=== PATIENT | female | born 1985 | race Caucasian/White ===

== ENCOUNTER 2017-03-27 01:00 | Emergency (ER) | payer SELFPAY ==
--- NOTE | 2017-03-27 01:20 | EDM.PDOC ---
ED HPI GENERAL MEDICAL PROBLEM - General Chief Complaint: 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 Problem Stated Complaint: FEMALE PROBLEMS Time Seen by Provider: 03/27/17 01:04 - History of Present Illness INITIAL COMMENTS - FREE TEXT/NARRATIVE: HISTORY AND PHYSICAL: History of present illness: The patient is a healthy 31-year-old female who presents with 3 days of dysuria frequency and urgency with urination and also of external genitalia irritation and discomfort. The patient states she was treated for a yeast infection a month ago in [place] and says that the discomfort started simultaneous with the urine symptoms. She has no pelvic pain no abdominal pain no vomiting or diarrhea no fevers and no flank pain. She has no gross vaginal discharge and she has a implant for contraception. Patient states that she was checked for STDs one month ago and is not worried about that. Patient states that the external genitalia are causing her discomfort and she has tried multiple over- the-counter preparations including Vagisil Desitin Review of systems: As per history of present illness and below otherwise all systems reviewed and negative. Past medical history: As per history of present illness and as reviewed below otherwise noncontributory. Surgical history: As per history of present illness and as reviewed below otherwise noncontributory. Social history: No reported history of drug or alcohol abuse. Family history: As per history of present illness and as reviewed below otherwise noncontributory. Physical exam: Gen.: Well-developed mildly overweight female who is nontoxic and speaking clearly and easily in the ED and vital signs have been noted by me HEENT: Atraumatic, normocephalic, negative for conjunctival pallor or scleral icterus, mucous membranes moist, throat clear, neck supple, nontender, trachea midline. Lungs: Clear to auscultation, breath sounds equal bilaterally, chest nontender. Heart: S1S2, regular rate and rhythm no overt murmurs Abdomen: Soft, nondistended, nontender. NABS Negative for costovertebral tenderness. Pelvis: Stable nontender. 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: Labia majora and minora are within normal limits without any gross swelling erythema and there are no lesions seen in the region. Rectal: Deferred. Extremities: Atraumatic, negative for cords or calf pain. Neurovascular unremarkable. Neuro: Awake, alert, oriented. Cranial nerves II through XII unremarkable. Cerebellum unremarkable. Motor and sensory unremarkable throughout. Exam nonfocal. Diagnostics: UA urine culture UCG Therapeutics: [] Impression: Dysuria/early UTI Definitive disposition and diagnosis as appropriate pending reevaluation and review of above. vaginal area Pain Score (Numeric/FACES): 8 - Related Data Allergies Allergy/AdvReac Type Severity Reaction Status Date / Time aspirin Allergy Rash Verified 03/27/17 01:10 Penicillins Allergy Rash Verified 03/27/17 01:10 Home Meds: Home Meds . [No Known Home Meds] 03/27/17 [History] ED ROS GENERAL - Review of Systems Review Of Systems: ROS reveals no pertinent complaints other than HPI. ED EXAM, GENERAL - Physical Exam Exam: See Below (See dictation) Course - Vital Signs Last Recorded V/S: Last Vital Signs Temp 36.5 C 03/27/17 01:11 Pulse 86 03/27/17 01:11 Resp 17 03/27/17 01:11 BP 108/65 03/27/17 01:11 Pulse Ox 98 03/27/17 01:11 - Orders/Labs/Meds Orders: Active Orders 24 hr Category Date Time Status CULTURE URINE [RM] Stat Lab 03/27/17 01:23 Received Labs: Laboratory Tests 03/27/17 03/27/17 Range/Units 01:23 01:23 Urine Color YELLOW Urine Appearance CLEAR Urine pH 6.0 (5.0-8.0) Ur Specific [place] 1.025 (1.001-1.035) Urine Protein NEGATIVE (NEGATIVE) mg/dL Urine Glucose (UA) NEGATIVE (NEGATIVE) mg/dL Urine Ketones NEGATIVE (NEGATIVE) mg/dL Urine Occult Blood NEGATIVE (NEGATIVE) Urine Nitrite NEGATIVE (NEGATIVE) Urine Bilirubin NEGATIVE (NEGATIVE) Urine Urobilinogen 0.2 (<2.0) EU/dL Ur Leukocyte Esterase TRACE (NEGATIVE) Urine RBC 0-2 (0-2/HPF) Urine WBC 1-3 (0-5/HPF) Ur Epithelial Cells FEW (NONE-FEW) Urine Bacteria FEW (NEGATIVE) Urine Mucus LIGHT (NONE-MOD) Urine HCG, Qual NEGATIVE (NEGATIVE) Departure - Departure Time of Disposition: 01:59 Disposition: Home, Self-Care 01 Condition: Good Clinical Impression: UTI, Urinary tract infectious disease, Dysuria, Vaginal irritation - Discharge Information Referrals: PCP,None [Primary Care Provider] - Forms: ED Department Discharge Additional Instructions: The following information is given to patients seen in the emergency department who are being discharged to home. This information is to outline your options for follow-up care. We provide all patients seen in our emergency department with a follow-up referral. The need for follow-up, as well as the timing and circumstances, are variable depending upon the specifics of your emergency department visit. If you don't have a primary care physician on staff, we will provide you with a referral. We always advise you to contact your personal physician following an emergency department visit to inform them of the circumstance of the visit and for follow-up with them and/or the need for any referrals to a consulting specialist. The emergency department will also refer you to a specialist when appropriate. This referral assures that you have the opportunity for followup care with a specialist. All of these measure are taken in an effort to provide you with optimal care, which includes your followup. Under all circumstances we always encourage you to contact your private physician who remains a resource for coordinating your care. When calling for followup care, please make the office aware that this follow-up is from your recent emergency room visit. If for any reason you are refused follow-up, please contact the [facility] emergency department at and ask to speak to the emergency department charge nurse. [facility] Primary care- Internal Medicine and Family [place] [phone] Please push hydration and use medications as prescribed from [facility], ciprofloxacin and Pyridium, until they are finished. Please also fill the prescription given to you for Monistat cream to apply to the external areas for discomfort. Please call and follow-up in our clinic for reevaluation and further care and return to ER as needed and as discussed. - My Orders Last 24 Hours: My Active Orders 03/27/17 01:23 CULTURE URINE [RM] Stat - Assessment/Plan Last 24 Hours: My Active Orders 03/27/17 01:23 CULTURE URINE [RM] Stat
== END 2017-03-27 02:10 | disposition home or self-care (01) ==
LOC: MW.ED 01:00
DX: N39.0 Urinary tract infection, site not specified (principal); N89.8 Other specified noninflammatory disorders of vagina; Z88.6 Allergy status to analgesic agent; Z88.0 Allergy status to penicillin
CPT/HCPCS: 81001; 81025; 87086; 99283

== ENCOUNTER 2019-09-08 05:23 | Inpatient (IN) | payer MEDICAID ==
[2019-09-08] MEDS ORDERED: Sodium Chloride 0.9% 10 ML Syringe FLUSH PRN (05:27)
[2019-09-08] MEDS ORDERED: Citric Acid/Sodium Citrate Solution 30 ML Cup PO ONE (05:27)
[2019-09-08] MEDS ORDERED: Sodium Chloride 0.9% 2.5 ML Syringe FLUSH PRN (05:27)
[2019-09-08] MEDS ORDERED: Sodium Chloride 0.9% 10 ML SDV IV PRN (05:27)
[2019-09-08] MEDS ORDERED: Oxytocin/0.9 % Sodium Chloride 30 UNIT/500 ML BAG IV SCH (05:30)
[2019-09-08] MEDS ORDERED: Clindamycin Phosphate in D5W 600 MG in Premix Bag 1 BAG IV ONE ×2 (05:45)
[2019-09-08] MEDS: Lactated Ringers 1,000 ML IV SCH ×4 (05:55→19:35)
[2019-09-08] MEDS ORDERED: Ondansetron 4 MG/2 ML SDV ONE (07:27)
[2019-09-08] MEDS ORDERED: Propofol 200 MG/20 ML SDV ONE (07:27)
[2019-09-08] MEDS ORDERED: ePHEDrine 50 MG/ML SDV ONE (07:28)
[2019-09-08] MEDS ORDERED: Oxytocin 10 Units/1 ML SDV ONE (07:28)
--- NOTE | 2019-09-08 07:28 | PCM.PREANE ---
Preanesthetic Assessment - Anesthesia/Transfusion/Family Hx Anesthesia History: Prior Anesthesia Without Reaction (Epidural, Spinal, and GA without complications) Family History of Anesthesia Reaction: No Transfusion History: No Prior Transfusion(s) - Review of Systems General: No Symptoms Pulmonary: No Symptoms Cardiovascular: No Symptoms Gastrointestinal: No Symptoms Neurological: No Symptoms Other: Reports: None - Physical Assessment NPO Status Date: 09/07/19 NPO Status Time: 22:00 Height: 5 ft 3 in Weight: 101.605 kg ASA Class: 2 Mental Status: Alert & Oriented x3 Airway Class: Mallampati = 2 Dentition: Reports: Normal Dentition Thyro-Mental Finger Breadths: 3 Mouth Opening Finger Breadths: 3 ROM/Head Extension: Full Lungs: Clear to Auscultation, Normal Respiratory Effort Cardiovascular: Regular Rate, Regular Rhythm - Lab Values: Laboratory Last Values WBC 11.03 K/uL (4.0-11.0) H 09/08/19 05:54 RBC 4.36 M/uL (4.30-5.90) 09/08/19 05:54 Hgb 10.3 g/dL (12.0-16.0) L 09/08/19 05:54 Hct 32.8 % (36.0-46.0) L 09/08/19 05:54 MCV 75.2 fL (80.0-98.0) L 09/08/19 05:54 MCH 23.6 pg (27.0-32.0) L 09/08/19 05:54 MCHC 31.4 g/dL (31.0-37.0) 09/08/19 05:54 RDW Std Deviation 42.0 fl (28.0-62.0) 09/08/19 05:54 RDW Coeff of Xenia 15 % (11.0-15.0) 09/08/19 05:54 Plt Count 216 K/uL (150-400) 09/08/19 05:54 MPV 11.80 fL (7.40-12.00) 09/08/19 05:54 Nucleated RBC % 0.0 /100WBC 09/08/19 05:54 Nucleated RBCs # 0 K/uL 09/08/19 05:54 Blood Type A POSITIVE 09/08/19 05:54 Antibody Screen NEGATIVE 09/08/19 05:54 - Allergies Allergies/Adverse Reactions: Allergies Allergy/AdvReac Type Severity Reaction Status Date / Time aspirin Allergy Rash Verified 09/08/19 05:26 Latex, Natural Rubber Allergy Rash Verified 09/08/19 06:30 Penicillins Allergy Difficulty Verified 09/08/19 05:26 Breathing - Acknowledgements Anesthesia Type Planned: Spinal Pt an Appropriate Candidate for the Planned Anesthesia: Yes Alternatives and Risks of Anesthesia Discussed w Pt/Guardian: Yes Pt/Guardian Understands and Agrees with Anesthesia Plan: Yes PreAnesthesia Questionnaire - Past Health History Medical/Surgical History: Denies Medical/Surgical History HEENT History: Other HEENT History: dental implants Cardiovascular History: Reports: None Respiratory History: Reports: Asthma (Last inhaler use at least 6 months ago, exercise induced) Gastrointestinal History: Reports: None 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 History: Reports: Other (See Below) Other 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 History: hx UTI 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 Para: 2 LMP (Approximate): Musculoskeletal History: Reports: None Neurological History: Reports: None Psychiatric History: Reports: None Endocrine/Metabolic History: Reports: Obesity/BMI 30+ Hematologic History: Reports: Anemia Immunologic History: Reports: None Oncologic (Cancer) History: Reports: Bone Other Oncologic History: Right thigh bone cancer - pt states this was excised and states its resolved to her knowledge Dermatologic History: Reports: None - Infectious Disease History Infectious Disease History: Reports: None - Past Surgical History Head Surgeries/Procedures: Reports: None HEENT Surgical History: Reports: None Cardiovascular Surgical History: Reports: None Respiratory Surgical History: Reports: None GI Surgical History: Reports: None Female Surgical History: Reports: Section (x2) Endocrine Surgical History: Reports: None Neurological Surgical History: Reports: None Musculoskeletal Surgical History: Reports: Other (See Below) Other Musculoskeletal Surgeries/Procedures:: hx rt leg 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" as a teenager Oncologic Surgical History: Reports: None Dermatological Surgical History: Reports: None - SUBSTANCE USE Smoking Status *Q: Never Smoker Tobacco Use Within Last Twelve Months: No Second Hand Smoke Exposure: No Recreational Drug Use History: No - HOME MEDS Home Medications: Home Meds Pnv No.95/Ferrous Fum/Folic AC [ Vitamin Tablet] 1 tab PO DAILY [History] - CURRENT (IN HOUSE) MEDS Current Meds: Current Medications Lactated Ringer's (Ringers, Lactated) 1,000 mls @ 500 mls/hr IV BOLUS [facility] Last Admin: 09/08/19 05:55 Dose: 500 mls/hr Oxytocin/Sodium Chloride (Oxytocin 30 Unit/500 Ml-Ns) 30 unit in 500 mls @ 250 mls/hr IV TITRATE TIP Sodium Chloride (Saline Flush) 10 ml FLUSH ASDIRECTED PRN PRN Reason: Keep Vein Open Sodium Chloride (Saline Flush) 2.5 ml FLUSH ASDIRECTED PRN PRN Reason: Keep Vein Open Sodium Chloride (Normal Saline) 10 ml IV ASDIRECTED PRN PRN Reason: IV Use Discontinued Medications Citric Acid/Sodium Citrate (Bicitra Solution) 30 ml PO ONETIME ONE Stop: 09/08/19 05:28 Clindamycin Phosphate 600 mg/ (Premix) 50 mls @ 100 mls/hr IV ONETIME ONE Stop: 09/08/19 06:14
[2019-09-08] MEDS ORDERED: Sodium Chloride 0.9% 20 ML ONE (07:30)
[2019-09-08] MEDS ORDERED: Morphine PF 10 MG/10 ML SDV ONE (07:33)
[2019-09-08] MEDS ORDERED: Octyl 2-Cyanoacrylate 1 Tube ONE (07:40)
--- NOTE | 2019-09-08 08:01 | PCM.LDHP ---
L&D History of Present Illness - General Date of Service: 09/08/19 Admit Problem/Dx: Patient Status Order with Admit Dx/Problem 09/08/19 05:15 Patient Status [ADT] Routine Admission Diagnosis/Problem Admission Diagnosis/Problem 09/08/19 07:59 33 yo admitted at 38 4/7 weeks for repeat delivery by Dr. Whiting; A +, Rubella Immune, GBS positive Source of Information: Patient History Limitations: Reports: No Limitations - Related Data Allergies/Adverse Reactions: Allergies Allergy/AdvReac Type Severity Reaction Status Date / Time aspirin Allergy Rash Verified 09/08/19 05:26 Latex, Natural Rubber Allergy Rash Verified 09/08/19 06:30 Penicillins Allergy Difficulty Verified 09/08/19 05:26 Breathing Home Medications: Home Meds Pnv No.95/Ferrous Fum/Folic AC [ Vitamin Tablet] 1 tab PO DAILY [History] Past Medical History - Past Health History Medical/Surgical History: Denies Medical/Surgical History HEENT History: Other HEENT History: dental implants Cardiovascular History: Reports: None Respiratory History: Reports: Asthma (Last inhaler use at least 6 months ago, exercise induced) Gastrointestinal History: Reports: None 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 History: Reports: Other (See Below) Other 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 History: 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: Musculoskeletal History: Reports: None Neurological History: Reports: None Psychiatric History: Reports: None Endocrine/Metabolic History: Reports: Obesity/BMI 30+ Hematologic History: Reports: Anemia Immunologic History: Reports: None Oncologic (Cancer) History: Reports: Bone Other Oncologic History: Right thigh bone cancer - pt states this was excised and states its resolved to her knowledge Dermatologic History: Reports: None - Infectious Disease History Infectious Disease History: Reports: None - Past Surgical History Head Surgeries/Procedures: Reports: None HEENT Surgical History: Reports: None Cardiovascular Surgical History: Reports: None Respiratory Surgical History: Reports: None GI Surgical History: Reports: None Female Surgical History: Reports: Section (x2) Endocrine Surgical History: Reports: None Neurological Surgical History: Reports: None Musculoskeletal Surgical History: Reports: Other (See Below) Other Musculoskeletal Surgeries/Procedures:: hx rt leg 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" as a teenager Oncologic Surgical History: Reports: None Dermatological Surgical History: Reports: None Social & Family History - Family History Family Medical History: Noncontributory Endocrine/Metabolic: Reports: Diabetes, type II Oncologic: Reports: Breast - Tobacco Use Smoking Status *Q: Never Smoker Second Hand Smoke Exposure: No - Caffeine Use Caffeine Use: Reports: Coffee - Recreational Drug Use Recreational Drug Use: No Drug Use in Last 12 Months: No H&P Review of Systems - Review of Systems: Review Of Systems: See Below General: Reports: No Symptoms HEENT: Reports: No Symptoms Pulmonary: Reports: No Symptoms Cardiovascular: Reports: No Symptoms Gastrointestinal: Reports: No Symptoms 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: Reports: No Symptoms Musculoskeletal: Reports: No Symptoms Skin: Reports: No Symptoms Psychiatric: Reports: No Symptoms Neurological: Reports: No Symptoms Hematologic/Lymphatic: Reports: No Symptoms Immunologic: Reports: No Symptoms L&D Exam - Exam Exam: See Below - Vital Signs Weight: 224 lb - Exam General: Alert, Oriented, Cooperative Lungs: Normal Respiratory Effort Cardiovascular: Regular Rate, Regular Rhythm GI/Abdominal Exam: Soft, Non-Tender Rectal Exam: Deferred 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: Deferred Back Exam: Normal Inspection, Full Range of Motion Extremities: Normal Inspection, Normal Range of Motion, Non-Tender, Normal Capillary Refill Skin: Warm, Dry, Intact Neurological: Normal Speech, Normal Tone, Sensation Intact Psychiatric: Alert, Normal Affect, Normal Mood - Patient Data Lab Results Last 24 hrs: Laboratory Results - last 24 hr 09/08/19 09/08/19 Range/Units 05:54 05:54 WBC 11.03 H (4.0-11.0) K/uL RBC 4.36 (4.30-5.90) M/uL Hgb 10.3 L (12.0-16.0) g/dL Hct 32.8 L (36.0-46.0) % MCV 75.2 L (80.0-98.0) fL MCH 23.6 L (27.0-32.0) pg MCHC 31.4 (31.0-37.0) g/dL RDW Std Deviation 42.0 (28.0-62.0) fl RDW Coeff of Xenia 15 (11.0-15.0) % Plt Count 216 (150-400) K/uL MPV 11.80 (7.40-12.00) fL Nucleated RBC % 0.0 /100WBC Nucleated RBCs # 0 K/uL Blood Type A POSITIVE Antibody Screen NEGATIVE Result Diagrams: 09/08/19 05:54 - Problem List (1) Supervision of normal IUP (intrauterine ) in multigravida SNOMED Code(s): 915451422, [id number], 389076077 ICD Code: Z34.80 - ENCOUNTER FOR SUPRVSN OF NORMAL , UNSP TRIMESTER Status: Acute Priority: High Current Visit: Yes Qualifiers: Trimester: third trimester Qualified Code(s): Z34.83 - Encounter for supervision of other normal , third trimester Problem List Initiated/Reviewed/Updated: Yes Orders Last 24hrs: Active Orders 24 hr Category Date Time Status Patient Status [ADT] Routine ADT 09/08/19 05:15 Active Notify Provider Vital Signs [RC] PRN Care 09/08/19 05:31 Active Procedure Site Prep Instruct [RC] ASDIRECTED Care 09/08/19 05:27 Active Up ad Argenis [RC] ASDIRECTED Care 09/08/19 05:27 Active Verify Patient Consent Obtain [RC] ASDIRECTED Care 09/08/19 05:27 Active Vital Signs [RC] PER UNIT ROUTINE Care 09/08/19 05:27 Active RPR (SYPHILIS SERO) W/ RFLX [REF] Routine Lab 09/08/19 05:54 Received Lactated Ringers [Ringers, Lactated] 1,000 ml Med 09/08/19 05:30 Active IV BOLUS Oxytocin/0.9 % Sodium Chloride [Oxytocin 30 Unit/500 ML Med 09/08/19 05:30 Active -NS] 30 unit in 500 ml IV TITRATE Sodium Chloride 0.9% [Normal Saline] Med 09/08/19 05:27 Active 10 ml IV ASDIRECTED PRN Sodium Chloride 0.9% [Saline Flush] Med 09/08/19 05:27 Active 10 ml FLUSH ASDIRECTED PRN Sodium Chloride 0.9% [Saline Flush] Med 09/08/19 05:27 Active 2.5 ml FLUSH ASDIRECTED PRN Peripheral IV Insertion Adult [OM.PC] Routine Oth 09/08/19 05:27 Ordered Schedule Procedure [COMM] Per Unit Routine Oth 09/08/19 05:27 Ordered Resuscitation Status Routine Resus Stat 09/08/19 05:27 Ordered Medication Orders Lactated Ringer's (Ringers, Lactated) 1,000 mls @ 500 mls/hr IV BOLUS TIP Last Admin: 09/08/19 07:38 Dose: 500 mls/hr Infusion: 09/08/19 07:38 Dose: 500 mls/hr Admin: 09/08/19 05:55 Dose: 500 mls/hr Oxytocin/Sodium Chloride (Oxytocin 30 Unit/500 Ml-Ns) 30 unit in 500 mls @ 250 mls/hr IV TITRATE TIP Sodium Chloride (Saline Flush) 10 ml FLUSH ASDIRECTED PRN PRN Reason: Keep Vein Open Sodium Chloride (Saline Flush) 2.5 ml FLUSH ASDIRECTED PRN PRN Reason: Keep Vein Open Sodium Chloride (Normal Saline) 10 ml IV ASDIRECTED PRN PRN Reason: IV Use Assessment/Plan Comment:: A: 33 yo admitted at 38 4/7 weeks for repeat delivery by Dr. Whiting ; A+, Rubella Immune, GBS positive P: Repeat delivery; routine plan of care.
--- NOTE | 2019-09-08 09:05 | PCM.OPNOTE ---
- General Post-Op/Procedure Note Date of Surgery/Procedure: 09/08/19 Operative Procedure(s): Repeat C/section. Pre Op Diagnosis: Previous C/section.[id number]. Post-Op Diagnosis: Same Anesthesia Technique: Spinal Primary Surgeon: Oscar Whiting Block Saw Operator: Ainsley Bailey EBL in mLs: 600 Complications: None Condition: Good
[2019-09-08] MEDS ORDERED: Ketorolac 30 MG/ML SDV ONE (09:32)
[2019-09-08] MEDS: Ketorolac 30 MG/ML SDV IVPUSH SCH ×2 (09:35→19:23)
--- NOTE | 2019-09-08 09:39 | PCM.POSTAN ---
POST ANESTHESIA ASSESSMENT - MENTAL STATUS Mental Status: Alert - RESPIRATORY Respiratory Status: Respiratory Rate WNL - CARDIOVASCULAR CV Status: Pulse Rate WNL - GASTROINTESTINAL GI Status: No Symptoms - PAIN Pain Score: 0 (SAB regressing) - POST OP HYDRATION Hydration Status: Adequate & Stable - OBSERVATIONS Free Text/Narrative:: Doing well. VSS. No problems noted.
[2019-09-08] MEDS ORDERED: Nalbuphine 10 MG/1 ML Vial IVPUSH PRN (09:47)
[2019-09-08] MEDS ORDERED: diphenhydrAMINE 50 MG/ML SDV IVPUSH PRN ×2 (09:47→12:14)
[2019-09-08] MEDS ORDERED: Naloxone 0.4 MG/ML Syringe IVPUSH PRN (09:47)
[2019-09-08] MEDS ORDERED: Bisacodyl 10 MG Supp RECTAL PRN (12:14)
[2019-09-08] MEDS ORDERED: Ondansetron 4 MG/2 ML SDV IVPUSH PRN (12:14)
[2019-09-08] MEDS ORDERED: Tranexamic Acid 1,000 MG in Sodium Chloride 0.9% 100 ML IV PRN (12:14)
[2019-09-08] MEDS ORDERED: Methylergonovine 0.2 MG/1 ML Amp IM PRN (12:14)
[2019-09-08] MEDS ORDERED: Misoprostol 200 MCG Tab RECTAL PRN (12:14)
[2019-09-08] MEDS ORDERED: Acetaminophen/oxyCODONE 325-5 MG Tab PO PRN ×2 (12:14)
[2019-09-08] MEDS ORDERED: Oxytocin 10 Units/1 ML SDV IM PRN (12:14)
[2019-09-08] MEDS ORDERED: Lanolin 100% Cream 7 GM Tube TOP PRN (12:14)
[2019-09-08] MEDS ORDERED: Oxytocin/Lactated Ringers 30 UNIT/500 ML BAG IV SCH (12:15)
--- NOTE | 2019-09-08 14:50 | OR ---
SURGEON: Oscar Whiting MD DATE OF PROCEDURE: 09/08/2019 PREOPERATIVE DIAGNOSIS: Intrauterine , 39 weeks; previous section; admitted for elective repeat section. POSTOPERATIVE DIAGNOSIS: Intrauterine , 39 weeks; previous section; admitted for elective repeat section. OPERATION PERFORMED: Elective repeat low-transverse section. SURGICAL ELASTIC KNITTER: Ainsley Bailey, certified nurse aluminum siding applicator. ANESTHESIA: Spinal. ESTIMATED BLOOD LOSS: 650 mL. COMPLICATIONS: None. FINDING: Male fetus. score reported to be 8 and 9. Normal uterus, tubes, and ovaries. INDICATION FOR SURGERY: This patient had two previous sections. She is term. She is 39 weeks. She is admitted for elective repeat section. PROCEDURE IN DETAIL: The patient was brought to the OR and properly identified. After taking time- out, the patient was prepped and draped in sterile fashion as usual. A low- transverse Pfannenstiel skin incision through the old scar was done. The [place] fascia and rectus fascia were opened in the direction of the incision. The two recti muscles were and peritoneal cavity was entered. A low- transverse uterine incision was done and extended manually with the hand. Fetus was in the vertex position, delivered without any problem, and cried immediately. score later on reported to be 9 and 9, and the weight is not available. The placenta delivered spontaneous, complete, and intact. Repair of the lower uterine segment was done with 2-0 Vicryl continuous interlocking in 2 layers. Reperitonealization done with 3-0 Vicryl continuous and then the peritoneal cavity evacuated completely from all blood and blood clots, and closed with 3-0 Vicryl continuous. The rectus fascia was closed with #1 PDS continuous, [place]il[place] fascia with 3-0 Vicryl continuous, and skin closed with 3-0 on a Júnior needle in a subcuticular fashion and Dermabond. Instrument and sponge counts were correct. The patient tolerated the procedure well and went to recovery room in stable general condition. DANIELLE / JDAE /[id number]
[2019-09-08] MEDS: Docusate Sodium 100 MG Cap PO SCH (21:42)
[2019-09-09] MEDS ORDERED: Ketorolac 30 MG/ML SDV ONE ×2 (02:17→08:02)
[2019-09-09] MEDS: Ketorolac 30 MG/ML SDV IVPUSH SCH ×2 (02:22→08:10)
--- NOTE | 2019-09-09 13:29 | PCM.PNPP ---
- General Info Date of Service: 09/09/19 Functional Status: Reports: Pain Controlled - Review of Systems General: Reports: No Symptoms HEENT: Reports: No Symptoms Pulmonary: Reports: No Symptoms Cardiovascular: Reports: No Symptoms Gastrointestinal: Reports: No Symptoms 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: Reports: No Symptoms Musculoskeletal: Reports: No Symptoms Skin: Reports: No Symptoms Neurological: Reports: No Symptoms Psychiatric: Reports: No Symptoms - General Info Date of Service: 09/09/19 - Patient Data Vital Signs - Most Recent: Last Vital Signs Temp 37.2 C 09/09/19 04:00 Pulse 82 09/09/19 09:00 Resp 16 09/09/19 09:00 BP 98/55 L 09/09/19 07:00 Pulse Ox 96 09/09/19 09:00 Weight - Most Recent: 101.605 kg I&O - Last 24 Hours: Intake & Output 09/08/19 09/09/19 09/09/19 22:59 06:59 14:59 Output Total 200 1900 Balance -200 -1900 Lab Results - Last 24 Hours: Laboratory Results - last 24 hr 09/08/19 09/09/19 Range/Units 05:54 05:42 Hgb 9.0 L (12.0-16.0) g/dL Hct 28.5 L (36.0-46.0) % RPR Non-Reac (Non-Reac) Med Orders - Current: Current Medications Bisacodyl (Dulcolax) 10 mg RECTAL ONETIME PRN PRN Reason: Constipation Diphenhydramine HCl (Benadryl) 25 mg IVPUSH Q6H PRN PRN Reason: Itching or Nausea Docusate Sodium (Colace) 100 mg PO BID [facility] Last Admin: 09/08/19 21:42 Dose: 100 mg Emollient Ointment (Lansinoh Hpa) 0 gm TOP ASDIRECTED PRN PRN Reason: Sore Nipples Lactated Ringer's (Ringers, Lactated) 1,000 mls @ 500 mls/hr IV BOLUS [facility] Last Admin: 09/08/19 07:38 Dose: 500 mls/hr Oxytocin/Sodium Chloride (Oxytocin 30 Unit/500 Ml-Ns) 30 unit in 500 mls @ 250 mls/hr IV TITRATE [facility] Tranexamic Acid 1,000 mg/ (Sodium Chloride) 110 mls @ 660 mls/hr IV ONETIME PRN PRN Reason: Bleeding Lactated Ringer's (Ringers, Lactated) 1,000 mls @ 125 mls/hr IV ASDIRECTED [facility] Last Infusion: 09/09/19 02:24 Dose: 125 mls/hr Oxytocin/Lactated Ringer's (Pitocin In Lr 30 Units/500 Ml) 30 unit in 500 mls @ 500 mls/hr IV TITRATE [facility] Ibuprofen (Motrin) 800 mg PO Q8H PRN PRN Reason: mild pain or fever Methylergonovine Maleate (Methergine) 0.2 mg IM ONETIME PRN PRN Reason: Excessive Vaginal Bleeding Misoprostol (Cytotec) 1,000 mcg RECTAL ONETIME PRN PRN Reason: excessive bleeding Ondansetron HCl (Zofran) 4 mg IVPUSH Q4H PRN PRN Reason: Nausea/Vomiting Oxycodone/Acetaminophen (Percocet 325-5 Mg) 1 tab PO Q4H PRN PRN Reason: Pain (moderate 4-6) Last Admin: 09/09/19 12:34 Dose: 1 tab Oxycodone/Acetaminophen (Percocet 325-5 Mg) 2 tab PO Q4H PRN PRN Reason: Pain (moderate 4-6) Oxytocin (Pitocin) 10 unit IM ASDIRECTED PRN PRN Reason: Excessive Vaginal Bleeding Sodium Chloride (Saline Flush) 10 ml FLUSH ASDIRECTED PRN PRN Reason: Keep Vein Open Sodium Chloride (Saline Flush) 2.5 ml FLUSH ASDIRECTED PRN PRN Reason: Keep Vein Open Sodium Chloride (Normal Saline) 10 ml IV ASDIRECTED PRN PRN Reason: IV Use Discontinued Medications Citric Acid/Sodium Citrate (Bicitra Solution) 30 ml PO ONETIME ONE Stop: 09/08/19 05:28 Last Admin: 09/09/19 07:54 Dose: Not Given Diphenhydramine HCl (Benadryl) 25 mg IVPUSH Q4H PRN PRN Reason: Itching Stop: 09/09/19 09:48 Ephedrine Sulfate (Ephedrine Sulfate) Confirm Administered Dose 100 mg .ROUTE .STK-MED ONE Stop: 09/08/19 07:29 Clindamycin Phosphate 600 mg/ (Premix) 50 mls @ 100 mls/hr IV ONETIME ONE Stop: 09/08/19 06:14 Last Admin: 09/08/19 07:38 Dose: 100 mls/hr Sodium Chloride (Normal Saline) Confirm Administered Dose 20 mls @ as directed .ROUTE .STK-MED ONE Stop: 09/08/19 07:31 Acetaminophen (Ofirmev) Confirm Administered Dose 100 mls @ as directed .ROUTE .STK-MED ONE Stop: 09/08/19 07:43 Last Admin: 09/09/19 07:54 Dose: Not Given Ketorolac Tromethamine (Toradol) Confirm Administered Dose 30 mg .ROUTE .STK- MED ONE Stop: 09/08/19 09:33 Last Admin: 09/08/19 09:42 Dose: 30 mg Ketorolac Tromethamine (Toradol) 30 mg IVPUSH Q6H [facility] Stop: 09/09/19 10:01 Last Admin: 09/08/19 19:23 Dose: 30 mg Ketorolac Tromethamine (Toradol) 30 mg IVPUSH Q6H [facility] Stop: 09/08/19 13:31 Last Admin: 09/09/19 08:10 Dose: 30 mg Ketorolac Tromethamine (Toradol) Confirm Administered Dose 30 mg .ROUTE .STK- MED ONE Stop: 09/09/19 02:18 Last Admin: 09/09/19 07:55 Dose: Not Given Ketorolac Tromethamine (Toradol) Confirm Administered Dose 30 mg .ROUTE .STK- MED ONE Stop: 09/09/19 08:03 Morphine Sulfate (Duramorph Pf) Confirm Administered Dose 10 mg .ROUTE .STK-MED ONE Stop: 09/08/19 07:34 Nalbuphine HCl (Nubain) 5 mg IVPUSH Q3H PRN PRN Reason: Pruritis Stop: 09/09/19 09:47 Naloxone HCl (Narcan) 0.1 mg IVPUSH ONETIME PRN PRN Reason: Respiratory Depression Stop: 09/09/19 09:48 Octyl Cyanoacrylate (Dermabond Advance) Confirm Administered Dose 1 applic .ROUTE .STK-MED ONE Stop: 09/08/19 07:41 Last Admin: 09/09/19 07:54 Dose: Not Given Ondansetron HCl (Zofran) Confirm Administered Dose 4 mg .ROUTE .STK-MED ONE Stop: 09/08/19 07:28 Oxytocin (Pitocin) Confirm Administered Dose 30 unit .ROUTE .STK-MED ONE Stop: 09/08/19 07:29 Propofol (Diprivan 20 Ml) Confirm Administered Dose 200 mg .ROUTE .STK-MED ONE Stop: 09/08/19 07:28 - Infant Interaction Disposition, : [place] in Room with Family Interaction: Holding Infant Feeding: Attempted ; Nursed Fair/Poor Support Person: Significant Other - Recovery Exam Fundal Tone: Firm Fundal Level: 1 Fingerbreadths Below Umbilicus Fundal Placement: Midline Lochia Amount: Small Lochia Color: Rubra/Red Perineum Description: Intact, Minimal Bruising/Swelling Episiotomy/Laceration: None Bladder Status: Nonpalpable Urinary Elimination: Indwelling Catheter - Exam General: Alert, Oriented HEENT: Pupils Equal Neck: Supple Lungs: Clear to Auscultation, Normal Respiratory Effort Cardiovascular: Regular Rate, Regular Rhythm GI/Abdominal Exam: Normal Bowel Sounds, Soft, Non-Tender, No Organomegaly, No Distention, No Abnormal Bruit, No Mass, Pelvis Stable Extremities: Normal Inspection, Normal Range of Motion, Non-Tender, No Pedal Edema, Normal Capillary Refill Skin: Warm, Dry, Intact Wound/Incisions: Healing Well Neurological: No New Focal Deficit Psy/Mental Status: Alert, Normal Affect, Normal Mood - Problem List Review Problem List Initiated/Reviewed/Updated: Yes - My Orders Last 24 Hours: My Active Orders 09/08/19 21:00 Docusate Sodium [Colace] 100 mg PO BID - Assessment Assessment:: Status post section postoperative day #1 patient is doing well her pain is under control she is ambulatory on regular diet and voiding without any problem passing gas in the incision is clean and dry. - Plan Plan:: A: 33 yo admitted at 38 4/7 weeks for repeat delivery by Dr. Whiting ; A+, Rubella Immune, GBS positive P: Repeat delivery; routine plan of care. 09/09/19. Planning to send the patient home in a.m.
[2019-09-09] MEDS: Ibuprofen 800 MG Tab PO PRN ×2 (15:41→23:40)
[2019-09-09] MEDS: Docusate Sodium 100 MG Cap PO SCH (21:17)
[2019-09-09] MEDS ORDERED: Acetaminophen 500 MG Tab PO PRN (21:29)
[2019-09-09] MEDS: Acetaminophen 500 MG Tab PO PRN (21:43)
[2019-09-10] MEDS: Acetaminophen 500 MG Tab PO PRN (04:36)
[2019-09-10] MEDS ORDERED: oxyCODONE 5 MG Tab PO PRN (05:41)
[2019-09-10] MEDS ORDERED: oxyCODONE 5 MG Tab ONE (05:48)
[2019-09-10] MEDS: Ibuprofen 800 MG Tab PO PRN (08:28)
[2019-09-10] MEDS: Docusate Sodium 100 MG Cap PO SCH (08:29)
--- NOTE | 2019-09-10 10:30 | PCM.DCSUM1 ---
Discharge Summary - Hospital Course Diagnosis: Stroke: No - Discharge Data Discharge Date: 09/10/19 Discharge Disposition: Home, Self-Care 01 Condition: Good - Referral to Home Health Primary Care Physician: Jose Abraham MD - Patient Summary/Data Operative Procedure(s) Performed: Repeat C/section. - Patient Instructions Diet: Usual Diet as Tolerated Activity: As Tolerated Driving: Do Not Drive Showering/Bathing: May Shower Wound/Incision Care: Keep Operative Site/Wound Site Clean and Dry - Discharge Plan Home Medications: Home Meds Pnv No.95/Ferrous Fum/Folic AC [ Vitamin Tablet] 1 tab PO DAILY [History] Patient Handouts: Delivery, Care After Referrals: [facility] [Outside] Oscar Whiting MD [Physician] - (1 week-September 15 @ 1:30pm w/ 6 week-October 20@ 3:00pm w/ ) - Discharge Summary/Plan Comment DC Time >30 min.: Yes - General Info Date of Service: 09/10/19 Functional Status: Reports: Pain Controlled - Review of Systems General: Reports: No Symptoms HEENT: Reports: No Symptoms Pulmonary: Reports: No Symptoms Cardiovascular: Reports: No Symptoms Gastrointestinal: Reports: No Symptoms 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: Reports: No Symptoms Musculoskeletal: Reports: No Symptoms Skin: Reports: No Symptoms Neurological: Reports: No Symptoms Psychiatric: Reports: No Symptoms - Patient Data Vitals - Most Recent: Last Vital Signs Temp 36.3 C 09/10/19 07:23 Pulse 86 09/10/19 07:23 Resp 16 09/10/19 07:23 BP 105/68 09/10/19 07:23 Pulse Ox 94 L 09/10/19 07:23 Weight - Most Recent: 101.605 kg Lab Results - Last 24 hrs: Laboratory Results - last 24 hr 09/08/19 Range/Units 05:54 RPR Non-Reac (Non-Reac) Med Orders - Current: Current Medications Acetaminophen (Tylenol Extra Strength) 500 - 1,000 mg PO Q6H PRN PRN Reason: Pain Last Admin: 09/10/19 04:36 Dose: 1,000 mg Bisacodyl (Dulcolax) 10 mg RECTAL ONETIME PRN PRN Reason: Constipation Diphenhydramine HCl (Benadryl) 25 mg IVPUSH Q6H PRN PRN Reason: Itching or Nausea Docusate Sodium (Colace) 100 mg PO BID [facility] Last Admin: 09/10/19 08:29 Dose: 100 mg Emollient Ointment (Lansinoh Hpa) 0 gm TOP ASDIRECTED PRN PRN Reason: Sore Nipples Last Admin: 09/09/19 23:44 Dose: 1 applic Lactated Ringer's (Ringers, Lactated) 1,000 mls @ 500 mls/hr IV BOLUS [facility] Last Admin: 09/08/19 07:38 Dose: 500 mls/hr Oxytocin/Sodium Chloride (Oxytocin 30 Unit/500 Ml-Ns) 30 unit in 500 mls @ 250 mls/hr IV TITRATE [facility] Tranexamic Acid 1,000 mg/ (Sodium Chloride) 110 mls @ 660 mls/hr IV ONETIME PRN PRN Reason: Bleeding Lactated Ringer's (Ringers, Lactated) 1,000 mls @ 125 mls/hr IV ASDIRECTED [facility] Last Infusion: 09/09/19 02:24 Dose: 125 mls/hr Oxytocin/Lactated Ringer's (Pitocin In Lr 30 Units/500 Ml) 30 unit in 500 mls @ 500 mls/hr IV TITRATE [facility] Ibuprofen (Motrin) 800 mg PO Q8H PRN PRN Reason: mild pain or fever Last Admin: 09/10/19 08:28 Dose: 800 mg Methylergonovine Maleate (Methergine) 0.2 mg IM ONETIME PRN PRN Reason: Excessive Vaginal Bleeding Misoprostol (Cytotec) 1,000 mcg RECTAL ONETIME PRN PRN Reason: excessive bleeding Ondansetron HCl (Zofran) 4 mg IVPUSH Q4H PRN PRN Reason: Nausea/Vomiting Oxycodone HCl (Oxycodone) 5 mg PO Q4H PRN PRN Reason: Pain Last Admin: 09/10/19 05:51 Dose: 5 mg Oxycodone/Acetaminophen (Percocet 325-5 Mg) 1 tab PO Q4H PRN PRN Reason: Pain (moderate 4-6) Last Admin: 09/09/19 12:34 Dose: 1 tab Oxycodone/Acetaminophen (Percocet 325-5 Mg) 2 tab PO Q4H PRN PRN Reason: Pain (moderate 4-6) Oxytocin (Pitocin) 10 unit IM ASDIRECTED PRN PRN Reason: Excessive Vaginal Bleeding Sodium Chloride (Saline Flush) 10 ml FLUSH ASDIRECTED PRN PRN Reason: Keep Vein Open Sodium Chloride (Saline Flush) 2.5 ml FLUSH ASDIRECTED PRN PRN Reason: Keep Vein Open Sodium Chloride (Normal Saline) 10 ml IV ASDIRECTED PRN PRN Reason: IV Use Discontinued Medications Acetaminophen (Tylenol Extra Strength) 0 mg PO Q6H PRN PRN Reason: Pain Citric Acid/Sodium Citrate (Bicitra Solution) 30 ml PO ONETIME ONE Stop: 09/08/19 05:28 Last Admin: 09/09/19 07:54 Dose: Not Given Diphenhydramine HCl (Benadryl) 25 mg IVPUSH Q4H PRN PRN Reason: Itching Stop: 09/09/19 09:48 Ephedrine Sulfate (Ephedrine Sulfate) Confirm Administered Dose 100 mg .ROUTE .STK-MED ONE Stop: 09/08/19 07:29 Clindamycin Phosphate 600 mg/ (Premix) 50 mls @ 100 mls/hr IV ONETIME ONE Stop: 09/08/19 06:14 Last Admin: 09/08/19 07:38 Dose: 100 mls/hr Sodium Chloride (Normal Saline) Confirm Administered Dose 20 mls @ as directed .ROUTE .STK-MED ONE Stop: 09/08/19 07:31 Acetaminophen (Ofirmev) Confirm Administered Dose 100 mls @ as directed .ROUTE .STK-MED ONE Stop: 09/08/19 07:43 Last Admin: 09/09/19 07:54 Dose: Not Given Ketorolac Tromethamine (Toradol) Confirm Administered Dose 30 mg .ROUTE .STK- MED ONE Stop: 09/08/19 09:33 Last Admin: 09/08/19 09:42 Dose: 30 mg Ketorolac Tromethamine (Toradol) 30 mg IVPUSH Q6H [facility] Stop: 09/09/19 10:01 Last Admin: 09/08/19 19:23 Dose: 30 mg Ketorolac Tromethamine (Toradol) 30 mg IVPUSH Q6H [facility] Stop: 09/08/19 13:31 Last Admin: 09/09/19 08:10 Dose: 30 mg Ketorolac Tromethamine (Toradol) Confirm Administered Dose 30 mg .ROUTE .STK- MED ONE Stop: 09/09/19 02:18 Last Admin: 09/09/19 07:55 Dose: Not Given Ketorolac Tromethamine (Toradol) Confirm Administered Dose 30 mg .ROUTE .STK- MED ONE Stop: 09/09/19 08:03 Morphine Sulfate (Duramorph Pf) Confirm Administered Dose 10 mg .ROUTE .STK-MED ONE Stop: 09/08/19 07:34 Nalbuphine HCl (Nubain) 5 mg IVPUSH Q3H PRN PRN Reason: Pruritis Stop: 09/09/19 09:47 Naloxone HCl (Narcan) 0.1 mg IVPUSH ONETIME PRN PRN Reason: Respiratory Depression Stop: 09/09/19 09:48 Octyl Cyanoacrylate (Dermabond Advance) Confirm Administered Dose 1 applic .ROUTE .STK-MED ONE Stop: 09/08/19 07:41 Last Admin: 09/09/19 07:54 Dose: Not Given Ondansetron HCl (Zofran) Confirm Administered Dose 4 mg .ROUTE .STK-MED ONE Stop: 09/08/19 07:28 Oxycodone HCl (Oxycodone) Confirm Administered Dose 5 mg .ROUTE .STK-MED ONE Stop: 09/10/19 05:49 Last Admin: 09/10/19 08:30 Dose: Not Given Oxytocin (Pitocin) Confirm Administered Dose 30 unit .ROUTE .STK-MED ONE Stop: 09/08/19 07:29 Propofol (Diprivan 20 Ml) Confirm Administered Dose 200 mg .ROUTE .STK-MED ONE Stop: 09/08/19 07:28 - Exam General: Reports: Alert, Oriented HEENT: Reports: Pupils Equal, Pupils Reactive, EOMI, Mucous Membr. Moist/Meta Neck: Reports: Supple Lungs: Reports: Clear to Auscultation, Normal Respiratory Effort Cardiovascular: Reports: Regular Rate, Regular Rhythm GI/Abdominal Exam: Normal Bowel Sounds, Soft, Non-Tender, No Organomegaly, No Distention, No Abnormal Bruit, No Mass, Pelvis Stable (Female) Exam: Normal External Exam, Normal Speculum Exam, Normal Bimanual Exam Rectal (Female) Exam: Normal Exam, Normal Rectal Tone Back Exam: Reports: Normal Inspection, Full Range of Motion Extremities: Normal Inspection, Normal Range of Motion, Non-Tender, No Pedal Edema, Normal Capillary Refill Skin: Reports: Warm, Dry, Intact Wound/Incisions: Reports: Healing Well Neurological: Reports: No New Focal Deficit Psy/Mental Status: Reports: Alert, Normal Affect, Normal Mood
== END 2019-09-10 12:50 | disposition home or self-care (01) | DRG 788 ==
LOC: MW.OB 05:23
PROVIDERS: ADMIT Obstetrics & Gynecology; ATTEND Obstetrics & Gynecology
PROC: 10D00Z2 Extraction of Products of Conception, Extraperitoneal, Open Approach (ICD-10-PCS; principal; 2019-09-08)
DX: O99.824 Streptococcus B carrier state complicating childbirth (principal); O34.219 Maternal care for unspecified type scar from previous cesarean delivery; Z3A.38 38 weeks gestation of pregnancy; Z37.0 Single live birth
CPT/HCPCS: 01961; 36415; 59025; 82962; 85014; 85018; 85027; 86592; 86593; 86850; 86900; 86901; A9270-GY; J1885; J2270; J2405; J2590; J2704; J3490; J7120

== ENCOUNTER 2022-01-25 10:20 | Emergency (ER) | payer MEDICAID, OTHER ==
[2022-01-25 15:03] LABS: CORONAVIRUS COVID-19 NAA NEGATIVE (NEGATIVE); INFLUENZA A NAA NEGATIVE (NEGATIVE); INFLUENZA B NAA NEGATIVE (NEGATIVE)
[2022-01-25] MEDS ORDERED: Sodium Chloride 0.9% 1,000 ML IV ONE (15:06)
[2022-01-25] MEDS ORDERED: Ondansetron 4 MG/2 ML SDV IVPUSH ONE (15:06)
[2022-01-25 16:09] LABS: CARBON DIOXIDE,CO2 29.5 mmol/L (21.0-32.0)
[2022-01-25] MEDS ORDERED: Potassium Chloride 20 MEQ Tab.ER PO ONE (16:49)
[2022-01-25] MEDS ORDERED: Iopamidol 755 MG/ML 500 ML Multipack Bottle IVPUSH STA (17:15)
== END 2022-01-25 18:22 | disposition home or self-care (01) ==
LOC: MW.ED 10:20
DX: K52.9 Noninfective gastroenteritis and colitis, unspecified (principal); E87.6 Hypokalemia; R74.01 Elevation of levels of liver transaminase levels; E66.9 Obesity, unspecified; Z68.32 Body mass index [BMI] 32.0-32.9, adult; Z88.6 Allergy status to analgesic agent; Z91.040 Latex allergy status; Z88.0 Allergy status to penicillin; Z79.899 Other long term (current) drug therapy; Z20.822 Contact with and (suspected) exposure to COVID-19
CPT/HCPCS: 0240U; 36415; 74177; 80053; 81001; 83690; 84703; 85025; 87045; 87046; 87324; 87328; 87329; 87449; 87899; 96361; 96374; 99284; A9270; J2405; J7030; Q9967

== ENCOUNTER 2022-09-13 08:58 | Emergency (ER) | payer BC ==
[2022-09-13] MEDS ORDERED: Prochlorperazine 10 MG/2 ML SDV IVPUSH ONE (09:18)
[2022-09-13] MEDS ORDERED: Sodium Chloride 0.9% 2.5 ML Syringe FLUSH PRN (09:18)
[2022-09-13] MEDS ORDERED: Sodium Chloride 0.9% 10 ML Syringe FLUSH PRN (09:18)
[2022-09-13] MEDS ORDERED: Lactated Ringers 1,000 ML IV SCH (09:30)
[2022-09-13 10:01] LABS: CORONAVIRUS COVID-19 NAA NEGATIVE (NEGATIVE); INFLUENZA A NAA NEGATIVE (NEGATIVE); INFLUENZA B NAA NEGATIVE (NEGATIVE); RESPIRATORY SYNCYTIAL VIR NAA NEGATIVE (NEGATIVE)
[2022-09-13 10:52] LABS: CARBON DIOXIDE,CO2 23.5 mmol/L (21.0-32.0); POTASSIUM,K 3.4 mmol/L (3.5-5.1)
== END 2022-09-13 11:53 | disposition home or self-care (01) ==
LOC: MW.ED 08:58
DX: R19.7 Diarrhea, unspecified (principal); E66.9 Obesity, unspecified; Z68.31 Body mass index [BMI] 31.0-31.9, adult; Z91.040 Latex allergy status; Z88.0 Allergy status to penicillin; Z20.822 Contact with and (suspected) exposure to COVID-19
CPT/HCPCS: 0241U; 36415; 80053; 83690; 84703; 85025; 96361; 96374; 99284; J0780; J3490; J7120